=== PATIENT | female | born 1945 | race Caucasian/White ===

== ENCOUNTER 2019-11-18 16:21 | Observation (INO) | payer MEDICARE, MEDICAID, SELFPAY ==
--- NOTE | ~2019-11-18 | XR_ITS ---
EXAMINATION: XR chest 2V 11/18/2019 16:58 INDICATION: Chest pain PROCEDURE: 2 view chest COMPARISON: Comparison to multiple prior studies sequentially, with oldest reviewed study dated 06/04. FINDINGS: The lungs are clear. The cardiomediastinal silhouette is within normal limits. There are no pleural effusions. There is no pneumothorax suspected. IMPRESSION: 1: NO ACUTE CARDIOPULMONARY DISEASE. Reviewed, dictated and finalized at location A.
--- NOTE | 2019-11-18 16:25 | ED.CHESTPAIN ---
HPI - Chest Pain General Chief Complaint: Chest Pain Stated Complaint: CP Time Seen by Provider: 11/18/19 16:22 Source: patient and EMS Mode of arrival: EMS Limitations: no limitations History of Present Illness HPI narrative: A 74 y/o female presents to the ED, via EMS, with c/o nonradiating right sided CP. Pt states that the sharp CP started this morning while she was lying in bed and was a 10/10 in severity when it started. Pt called EMS, an the CP was resolved en route. She denies fever, cough, ABD pain, SOB, and rhinorrhea. EMS gave the patient Aspirin 81mg x3 en route. She denies any injury or fall that could cause the CP. Pt has a PMHx of CT and states that the CP felt similar. MD complaint: chest pain (Right sided) Pertinent past history: prior CT Onset (ago): hour(s) (Today) Timing of current episode: now resolved Onset: during rest Pain location: right chest Pain radiation: none Severity: similar to previous episodes Pain scale (0-10): 10 Quality: sharp Associated symptoms: other (None) Treatment prior to arrival: aspirin Related Data Allergies Allergy/AdvReac Type Severity Reaction Status Date / Time No Known Allergies Allergy Unverified 10/29/18 14:06 Review of Systems Review of Systems: All systems reviewed & are unremarkable except as noted in HPI and below Constitutional: Constitutional: Denies fever(s) ENT: Denies nasal discharge Cardiovascular: Cardiovascular: Reports chest pain (Resolved right sided) Respiratory: Respiratory: Denies cough and Denies dyspnea Gastrointestinal: Gastrointestinal: Denies abdominal pain PMFSH Past Medical History Medical History (Updated 11/18/19 @ 18:18 by Day Tatum MD) Affective disorder Afib Anemia Ankle fracture, left Anxiety Arthritis Bipolar disorder Cataracts, bilateral CHF (congestive heart failure) Chronic back pain COPD (chronic obstructive pulmonary disease) Dementia Depression Diabetes Dysphagia Eczema Fibula fracture Heart attack HTN (hypertension) Hyperlipidemia Mental disorder Pneumonia Post-menopausal Schizophrenia Surgical History Surgical History (Updated 11/18/19 @ 16:30 by Amna Salgado) History of appendectomy History of cataract surgery History of cholecystectomy History of hysterectomy Social History Social History (Updated 11/18/19 @ 16:31 by Amna Salgado) Smoking status: Never smoker Exam Narrative: Exam Narrative: GENERAL: Well-appearing, well-nourished, and in no acute distress. HEAD: Normocephalic, atraumatic EYES: PERRLA and EOMI, conjunctiva clear without discharge THROAT:Mucous membranes moist, Oropharynx normal without erythema, exudate, peritonsillar swelling or fluctuance NECK: Supple, without lymphadenopathy or mass RESPIRATORY: No respiratory distress, Airway patent, Respirations non-labored, Clear to auscultation without rales, rhonchi or wheeze, right chest tenderness HEART: Regular rate and rhythm. No murmur heard. Normal peripheral pulses. ABDOMEN: Soft, nontender, nondistended, normal active bowel sounds. No masses. No rebound or guarding, No organomegaly. bilateral lower extremity edema SKIN: Warm, dry, normal color without rash NEURO: Alert and oriented x3. CN 2-12 grossly intact. No focal deficits. tremors present PSYCH: Normal mood and affect. Course Consultations Consultation #1: Ayla accepts patient to hospitalist service Date: 11/18/19 Time: 18:00 Vital Signs Vital signs: Vital Signs Temperature 98.7 F 11/18/19 16:40 Pulse Rate 84 11/18/19 16:40 Respiratory Rate 16 11/18/19 16:40 Blood Pressure 140/58 L 11/18/19 16:40 Pulse Oximetry 97 11/18/19 16:40 Temperature 98.7 F 11/18/19 16:40 Pulse Rate 84 11/18/19 16:40 Respiratory Rate 16 11/18/19 16:40 Blood Pressure 140/58 L 11/18/19 16:40 Pulse Oximetry 97 11/18/19 16:40 MDM - Chest Pain Lab Data Attestation: I reviewed the patient's lab results. Result diagrams: 11/18/19
[2019-11-18 16:40] VITALS: BP 140/58; PULSE 84; RESP 16; TEMP 37.1; O2SAT 97
--- NOTE | 2019-11-18 16:40 | ECG_ITS ---
Measurements Intervals [place] Rate: 93 P: [place]: 0 QRS: -49 QRSD: 160 T: 113 QT: 415 QTc: 517 Interpretive Statements ATRIAL FIBRILLATION VENTRICULAR PREMATURE COMPLEX LEFT AXIS DEVIATION LEFT BUNDLE BRANCH BLOCK ABNORMAL ECG Electronically Signed On 11-19-2019 7:52:40 CDT by Tristen Lynch D.O.
[2019-11-18 17:31] LABS: Basophils Percent Auto 0.7 % (0.2-1.2); Eosinophils Absolute Auto 0.2 K/mm3 (0-0.3); Eosinophils Percent Auto 3.5 % (0-4.4); Hematocrit 30.8 % (37.0-47.0); Immature Granulocyte Absolute 0.04 K/mm3 (0.00-0.031); Immature Granulocyte Percent A 0.7 % (0-0.5); Lymphocytes Absolute Auto 0.66 K/mm3 (0.9-3.2); Mean Corpuscular HGB Conc 32.5 g/dl (32-36); Mean Corpuscular Hemoglobin 29.9 pg (26-34); Mean Corpuscular Volume 92.2 fl (80-100); Mean Platelet Volume 10.7 fl (7.4-10.4); Monocytes Absolute Auto 0.5 K/mm3 (0.1-0.6); Monocytes Percent Auto 9.7 % (2.6-8.5); Neutrophils Percent Auto 73.4 % (45.5-73.1); Platelet Count Result 194 k/mm3 (150-375); Red Blood Count 3.34 M/mm3 (4.2-5.4); Red Cell Distribution Width 13.2 % (11.5-14.5); White Blood Count 5.5 K/mm3 (4.5-10.0)
[2019-11-18 17:39] LABS: Blood Urea Nitrogen 44 mg/dL (7-17); Carbon Dioxide 27 mmol/L (22-30); Chloride 99 mmol/L (98-107); Estimated Glomerular Filt Rate 29; Glucose 109 mg/dL (65-105); Potassium 4.3 mmol/L (3.4-5.0); Sodium 137 mmol/L (137-145)
[2019-11-18 17:41] LABS: Partial Thromboplastin Time 36.5 SECONDS (22.3-36.8)
[2019-11-18 17:50] LABS: Troponin I < 0.012 ng/mL (0.000-0.034)
[2019-11-18 20:00] VITALS: PULSE 86
--- NOTE | 2019-11-18 20:00 | ADMGEN ---
This patient, Jennifer Castrejon, was admitted to IMU Room 201-01. Patient/family oriented to hospital policies and general routines including ID bracelet, bed and alarms, visiting hours, pain management, procedures, bathroom and other care routines, personal items, smoking policy, room service/diet, and visiting hours. Valuables list has been completed. Information on how to activate the Rapid Response Team has been discussed. Patient/Family are encouraged to report perceived risks to care and to ask questions if they do not understand what they are told or what they should do.
[2019-11-18 20:05] VITALS: BP 151/66; PULSE 86; RESP 18; TEMP 36.2; O2SAT 97; BMI 28.5
[2019-11-18 21:06] LABS: Troponin I < 0.012 ng/mL (0.000-0.034)
[2019-11-18 22:00] VITALS: PULSE 61
[2019-11-18 23:19] VITALS: BP 129/68; PULSE 64; RESP 16; TEMP 36.3; O2SAT 95
--- NOTE | 2019-11-18 23:53 | PM.IMHP ---
H&P: HPI History of Present Illness Chief complaint: CHEST PAIN Narrative: This is a 74 year old demented female with known history of atrial fibrillation, chronic anemia, COPD, HTN, CAD+ and several other comorbidities who presented to the hospital with a complaint of nonradiating right sided chest pain. The patient apparently has had intermittent chest pain for about 1 week duration. She woke up this morning with right sided chest pain. The patient denied any associated symptoms of shortness of breath, palpitations, diaphoresis, nausea, vomiting, or dizziness. She denies any other symptoms such as fever, cough, abdominal pain, dysuria, hematuria, diarrhea or rectal bleeding. She states she has had a previous heart attack but denies having any stents. She doesn't know if she has ever had a cardiac cath in the past. Her chest pain resolved earlier today with nitro. The patient was evaluated in the ER today and admitted for chest pain rule out. On my encounter with her tonight she denies any chest pain. She has no other complaints at this time. Review of Systems Review of Systems: All systems reviewed & are unremarkable except as noted in HPI and below PMFSH Past Medical History Medical History Affective disorder Afib Anemia Ankle fracture, left Anxiety Arthritis Bipolar disorder Cataracts, bilateral CHF (congestive heart failure) Chronic back pain COPD (chronic obstructive pulmonary disease) Dementia Depression Diabetes Dysphagia Eczema Fibula fracture Heart attack HTN (hypertension) Hyperlipidemia Mental disorder Pneumonia Post-menopausal Schizophrenia Surgical History Surgical History History of appendectomy History of cataract surgery History of cholecystectomy History of hysterectomy Social History Social History Smoking status: Never smoker Substance use type: does not use Spiritual care concerns: No Agree to blood products: Yes Comments Family medical history is unknown. Meds Home Medications and Allergies Home Medications Medication Instructions Recorded Confirmed Type acetaminophen 325 mg PO Q4H PRN 11/18/19 11/18/19 History albuterol sulfate 1.25 mg INHALATION Q4H PRN 11/18/19 11/18/19 History alum-mag hydroxide-simeth 30 ml PO BID PRN 11/18/19 11/18/19 History [Jess-Lanta] aspirin 81 mg PO DAILY 11/18/19 11/18/19 History calcium carbonate-vitamin D3 1 tablet PO BID 11/18/19 11/18/19 History carvedilol [Coreg] 25 mg PO BID 11/18/19 11/18/19 History cyanocobalamin (vitamin B-12) 1,000 mcg IM MONTHLY 11/18/19 11/18/19 History diphenhydramine HCl [Benadryl] 25 mg PO Q8H PRN 11/18/19 11/18/19 History donepezil 10 mg PO HS 11/18/19 11/18/19 History duloxetine 60 mg PO DAILY 11/18/19 11/18/19 History fluticasone propionate [Allergy 2 spray INTRANASAL DAILY 11/18/19 11/18/19 History Relief (fluticasone)] furosemide 20 mg PO DAILY 11/18/19 11/18/19 History isosorbide mononitrate 30 mg PO DAILY 11/18/19 11/18/19 History losartan 50 mg PO DAILY 11/18/19 11/18/19 History magnesium hydroxide [Milk of 30 ml PO HS PRN 11/18/19 11/18/19 History Magnesia] metformin 500 mg PO BID 11/18/19 11/18/19 History polyethylene glycol 3350 [Miralax] 17 g PO DAILY PRN 11/18/19 11/18/19 History polysaccharide iron complex 150 mg PO BID 11/18/19 11/18/19 History [Poly-Iron] quetiapine [Seroquel] 50 mg PO TID 11/18/19 11/18/19 History quetiapine [Seroquel] 100 mg PO HS 11/18/19 11/18/19 History simvastatin 40 mg PO HS 11/18/19 11/18/19 History spironolactone 12.5 mg PO DAILY 11/18/19 11/18/19 History Allergies Allergy/AdvReac Type Severity Reaction Status Date / Time No Known Allergies Allergy Unverified 10/29/18 14:06 Vital Signs Vital Signs - 24 hr 11/18/19 16:40 11/18/19 20:00 11/18/19 20:05 Temperature 37.1 C 36.2 C L
[2019-11-19] VITALS (10 sets, daily range): BP systolic 100–144; BP diastolic 45–70; PULSE 53–76; RESP 16–18; TEMP 36.1–36.3; O2SAT 93–99
[2019-11-19 00:01] LABS: Troponin I < 0.012 ng/mL (0.000-0.034)
[2019-11-19] MEDS: DONEPEZIL HCL 10 MG TABLET PO (01:11)
[2019-11-19] MEDS: QUEtiapine FUMARATE 100 MG TABLET PO (01:11)
[2019-11-19] MEDS: SIMVASTATIN 20 MG TABLET 40 MG PO (01:11)
[2019-11-19] MEDS: carvediloL 25 MG TABLET PO ×2 (01:12→09:23)
[2019-11-19] MEDS: SODIUM CHLORIDE 0.9% IV 1,000 ML 75 ML IV CONT (01:16)
[2019-11-19 05:15] LABS: Blood Urea Nitrogen 43 mg/dL (7-17); Calcium 9.5 mg/dL (8.4-10.2); Carbon Dioxide 27 mmol/L (22-30); Chloride 103 mmol/L (98-107); Estimated CRCL calculation 27 ml/min; Estimated Glomerular Filt Rate 32; Glucose 104 mg/dL (65-105); Potassium 3.8 mmol/L (3.4-5.0); Sodium 136 mmol/L (137-145)
--- NOTE | 2019-11-19 08:41 | PM.IMPN ---
Progress Note: A&P Assessment and Plan (1) Chest pain: Qualifiers: Chest pain type: unspecified Qualified Code(s): R07.9 - Chest pain, unspecified Code(s): R07.9 - Chest pain, unspecified Status: Acute Assessment and Plan: Serial troponin levels all negative. Cardiology consulted and appreciate input. EKG with left bundle branch block. Telemetry reviewed on 11/19/2019 with atrial fibrillation. Possible discharge today pending cardiology recommendations. (2) HTN (hypertension): Qualifiers: Hypertension type: unspecified Qualified Code(s): I10 - Essential (primary) hypertension Code(s): I10 - Essential (primary) hypertension Status: Chronic Assessment and Plan: Blood pressure reviewed on 11/19/2019 with some variation but acceptable. Will continue to monitor on Coreg and Imdur. (3) Afib: Qualifiers: Atrial fibrillation type: unspecified Qualified Code(s): I48.91 - Unspecified atrial fibrillation Code(s): I48.91 - Unspecified atrial fibrillation Status: Chronic Assessment and Plan: Previously on Pradaxa but stopped in November 2018 due to falls and blood in stool. Will continue ASA. Continue Coreg. Telemetry reviewed on 11/19/2019 with heart rate controlled. (4) Anemia: Qualifiers: Anemia type: unspecified type Qualified Code(s): D64.9 - Anemia, unspecified Code(s): D64.9 - Anemia, unspecified Status: Chronic Assessment and Plan: Known chronic issue. Hemoglobin stable at baseline at 10.00 on admission. No sign of bleeding. (5) Diabetes: Qualifiers: Diabetes mellitus type: type 2 Diabetes mellitus intermediate school teacher insulin use: without intermediate school teacher use Diabetes mellitus complication status: without complication Qualified Code(s): E11.9 - Type 2 diabetes mellitus without complications Code(s): E11.9 - Type 2 diabetes mellitus without complications Status: Chronic Assessment and Plan: Glucose reviewed on 11/19/2019 and stable. Home metformin on hold. Sliding scale insulin available as needed. (6) CHF (congestive heart failure): Qualifiers: Heart failure type: unspecified Heart failure chronicity: chronic Qualified Code(s): I50.9 - Heart failure, unspecified Code(s): I50.9 - Heart failure, unspecified Status: Chronic Assessment and Plan: No sign of exacerbation. Remains on Coreg. Home furosemide, losartan and spironolactone were held on admission. Will wait to resume until seen by Cardiology. (7) COPD (chronic obstructive pulmonary disease): Qualifiers: COPD type: unspecified COPD Qualified Code(s): J44.9 - Chronic obstructive pulmonary disease, unspecified Code(s): J44.9 - Chronic obstructive pulmonary disease, unspecified Status: Chronic Assessment and Plan: No exacerbation. Patient is on room air. Albuterol nebulizer as needed. (8) Hyperlipidemia: Qualifiers: Hyperlipidemia type: unspecified Qualified Code(s): E78.5 - Hyperlipidemia, unspecified Code(s): E78.5 - Hyperlipidemia, unspecified Status: Chronic Assessment and Plan: Continue simvastatin. (9) Dementia: Qualifiers: Dementia type: unspecified type Dementia behavioral disturbance: without behavioral disturbance Qualified Code(s): F03.90 - Unspecified dementia without behavioral disturbance Code(s): F03.90 - Unspecified dementia without behavioral disturbance Status: Chronic Assessment and Plan: Patient appears to be stable at baseline. Continue donepezil. (10) Schizophrenia: Qualifiers: Schizophrenia type: unspecified Qualified Code(s): F20.9 - Schizophrenia, unspecified Code(s): F20.9 - Schizophrenia, unspecified Status: Chronic Assessment and Plan: Mood stable. Continue seroquel. (11) Bipolar disorder: Qualifiers:
--- NOTE | 2019-11-19 08:55 | WPDCN ---
Assessment and Plan Assessment and plan (1) Chest pain: Qualifiers: Chest pain type: unspecified Qualified Code(s): R07.9 - Chest pain, unspecified Code(s): R07.9 - Chest pain, unspecified Status: Acute Assessment and Plan: Atypical chest pain, no associated symptoms, negative troponins. Doing well since she has been admitted. I suspect noncardiac. reasonable discharge to [facility] with p.r.n. Tylenol and p.r.n. TNG. (2) Cardiomyopathy: Code(s): I42.9 - Cardiomyopathy, unspecified Status: Acute Assessment and Plan: Cardiomyopathy, EF 20-25%, on the appropriate medications (3) CHF (congestive heart failure): Qualifiers: Heart failure type: unspecified Heart failure chronicity: chronic Qualified Code(s): I50.9 - Heart failure, unspecified Code(s): I50.9 - Heart failure, unspecified Status: Chronic Assessment and Plan: History of CHF, been doing well with no CHF admissions for over 1 year. Euvolemic. (4) HTN (hypertension): Qualifiers: Hypertension type: unspecified Qualified Code(s): I10 - Essential (primary) hypertension Code(s): I10 - Essential (primary) hypertension Status: Chronic Assessment and Plan: Up and down, generally a little on the high side but reasonable (5) Afib: Qualifiers: Atrial fibrillation type: unspecified Qualified Code(s): I48.91 - Unspecified atrial fibrillation Code(s): I48.91 - Unspecified atrial fibrillation Status: Chronic Assessment and Plan: Persistent atrial fibrillation, rate controlled, not on anticoagulation because of GI bleed and anemia (6) Anemia: Qualifiers: Anemia type: unspecified type Qualified Code(s): D64.9 - Anemia, unspecified Code(s): D64.9 - Anemia, unspecified Status: Chronic Assessment and Plan: Anemia persists with no overt bleeding (7) CKD (chronic kidney disease): Code(s): N18.9 - Chronic kidney disease, unspecified Status: Acute Assessment and Plan: 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 Taking an ARB. Tolerating spironolactone with no hyperkalemia. (8) Schizophrenia: Qualifiers: Schizophrenia type: unspecified Qualified Code(s): F20.9 - Schizophrenia, unspecified Code(s): F20.9 - Schizophrenia, unspecified Status: Chronic Assessment and Plan: Cognitive impairment and history of schizophrenia HPI Data of Consult Date/Time: 11/19/19 08:55 Requesting Physician: Jesusita Gonzalez MD Primary Care Provider: Yessica Santiago MD Consult Narrative Narrative: Date of service: 11/19/2019 Jennifer Castrejon is a 74 year old female whom I was asked to see by Dr. Gonzalez and Dr. Teresa advice and opinion regarding her chest pain in consultation. Apparently the patient was having chest discomfort yesterday and was brought to the ER by ambulance and admitted. The chest discomfort had resolved in the ambulance. She reports that she has been having chest pain intermittently but can't tell me how long that has been occurring. Is a sharp right-sided discomfort which can last for few hours with no associated nausea vomiting shortness of breath or diaphoresis. She does have occasional soreness to her chest pain is nonpleuritic and does not seem to be positional. Not related to meals. ?Comes and stays.? She has not had any further discomfort this morning. Ms. Castrejon has a history of CHF and cardiomyopathy which is presumed ischemic. First hospitalization for CHF was in April 2018 when her EF was found to be 20-25%. Cardiac catheterization was recommended but she declined. She also has history of atrial fibrillation. Anticoagulation was discontinued November 2018 because of GI bleeding. She has hypertension, hyperlipidemia and diabetes. 04/2018 echo: EF 20-25%, multiple wall motion abnormalities involving
[2019-11-19] MEDS: ASPIRIN 81 MG CHEWABLE TABLET PO (09:22)
[2019-11-19] MEDS: DULOXETINE 60 MG CAPSULE.DR PO (09:23)
[2019-11-19] MEDS: FLUTICASONE PROPIONATE 0.05% NA SPR 16 GM BTL (*BKC) 2 SPRAY NASAL (09:23)
[2019-11-19] MEDS: QUEtiapine FUMARATE 25 MG TABLET 50 MG PO ×2 (09:24→12:17)
[2019-11-19] MEDS: ISOSORBIDE MONONITRATE 30 MG TAB.ER.24H PO (09:24)
[2019-11-19] MEDS: POLYSACCHARIDE IRON COMPLEX 150 MG CAPSULE PO (09:24)
[2019-11-19 10:21] LABS: Glucose Point of Care 101 (65-105)
[2019-11-19] MEDS: CYANOCOBALAMIN INJ 1,000 MCG/ML VIAL 1000 MCG IM (11:00)
[2019-11-19] MEDS: INSULIN ASPART (*BKC) 100 UNITS/ML SUB-Q (12:17)
[2019-11-19 13:51] LABS: Glucose Point of Care 201 (65-105)
--- NOTE | 2019-11-19 16:40 | PM.DS ---
DS: Diagnosis Admitting Diagnosis Admitting Diagnosis: Chest pain, unspecified Discharge Diagnosis (1) Chest pain: Qualifiers: Chest pain type: unspecified Qualified Code(s): R07.9 - Chest pain, unspecified Code(s): R07.9 - Chest pain, unspecified Status: Acute (2) HTN (hypertension): Qualifiers: Hypertension type: unspecified Qualified Code(s): I10 - Essential (primary) hypertension Code(s): I10 - Essential (primary) hypertension Status: Chronic (3) Afib: Qualifiers: Atrial fibrillation type: unspecified Qualified Code(s): I48.91 - Unspecified atrial fibrillation Code(s): I48.91 - Unspecified atrial fibrillation Status: Chronic (4) Anemia: Qualifiers: Anemia type: unspecified type Qualified Code(s): D64.9 - Anemia, unspecified Code(s): D64.9 - Anemia, unspecified Status: Chronic (5) Diabetes: Qualifiers: Diabetes mellitus complication status: without complication Diabetes mellitus extermination supervisor insulin use: without extermination supervisor use Diabetes mellitus type: type 2 Qualified Code(s): E11.9 - Type 2 diabetes mellitus without complications Code(s): E11.9 - Type 2 diabetes mellitus without complications Status: Chronic (6) CHF (congestive heart failure): Qualifiers: Heart failure chronicity: chronic Heart failure type: unspecified Qualified Code(s): I50.9 - Heart failure, unspecified Code(s): I50.9 - Heart failure, unspecified Status: Chronic (7) COPD (chronic obstructive pulmonary disease): Qualifiers: COPD type: unspecified COPD Qualified Code(s): J44.9 - Chronic obstructive pulmonary disease, unspecified Code(s): J44.9 - Chronic obstructive pulmonary disease, unspecified Status: Chronic (8) Hyperlipidemia: Qualifiers: Hyperlipidemia type: unspecified Qualified Code(s): E78.5 - Hyperlipidemia, unspecified Code(s): E78.5 - Hyperlipidemia, unspecified Status: Chronic (9) Dementia: Qualifiers: Dementia behavioral disturbance: without behavioral disturbance Dementia type: unspecified type Qualified Code(s): F03.90 - Unspecified dementia without behavioral disturbance Code(s): F03.90 - Unspecified dementia without behavioral disturbance Status: Chronic (10) Schizophrenia: Qualifiers: Schizophrenia type: unspecified Qualified Code(s): F20.9 - Schizophrenia, unspecified Code(s): F20.9 - Schizophrenia, unspecified Status: Chronic (11) Bipolar disorder: Qualifiers: Active/Remission status: in remission of unspecified degree Qualified Code(s): F31.70 - Bipolar disorder, currently in remission, most recent episode unspecified Code(s): F31.9 - Bipolar disorder, unspecified Status: Chronic DS: Summary Hospital Course Reason for hospitalization: Chest pain. Hospital Course: Date of Service of Discharge: November 19, 2019. History of Present Illness: Patient is a 74-year-old female with dementia, atrial fibrillation, chronic anemia, COPD, hypertension, coronary artery disease and several other comorbidities who presented to the hospital from nursing facility with nonradiating right-sided chest pain. Patient has had intermittent pain for approximately 1 week. On the morning of presentation, she woke up with right-sided chest pain. No associated shortness of breath, palpitations, diaphoresis, nausea, vomiting or dizziness. Recent fever, cough, nausea or vomiting. In the emergency room, no acute changes were found but patient was placed in observation for further evaluation and treatment. Course in Hospital: Patient was placed in observation in the IMU where she remained for the duration of her stay. Serial troponin levels were drawn and completely negative. EKG with left bundle branch block but no acute changes. Patient had no further chest pain whil
== END 2019-11-19 13:47 ==
LOC: ANHED 18:18 → ANHIMU 22:56
PROVIDERS: Family Medicine; Admitting Provider Family Medicine; Emergency Provider General Practice; PCP Family Medicine; Visit Provider Hospitalist
DX: R07.89 Other chest pain (principal); I13.0 Hypertensive heart and chronic kidney disease with heart failure and stage 1 through stage 4 chronic kidney disease, or unspecified chronic kidney disease; E11.22 Type 2 diabetes mellitus with diabetic chronic kidney disease; N18.9 Chronic kidney disease, unspecified; I50.9 Heart failure, unspecified; I48.19 Other persistent atrial fibrillation; J44.9 Chronic obstructive pulmonary disease, unspecified; E78.5 Hyperlipidemia, unspecified; F03.90 Unspecified dementia, unspecified severity, without behavioral disturbance, psychotic disturbance, mood disturbance, and anxiety; F20.9 Schizophrenia, unspecified; F31.70 Bipolar disorder, currently in remission, most recent episode unspecified; I25.10 Atherosclerotic heart disease of native coronary artery without angina pectoris; I42.9 Cardiomyopathy, unspecified; I44.7 Left bundle-branch block, unspecified; D64.9 Anemia, unspecified; Z79.82 Long term (current) use of aspirin; Z79.84 Long term (current) use of oral hypoglycemic drugs; Z79.899 Other long term (current) drug therapy; Z87.19 Personal history of other diseases of the digestive system; Z91.81 History of falling; Z99.3 Dependence on wheelchair
CPT/HCPCS: 36415; 71046; 80048; 84484; 85025; 85610; 85730; 87081; 93005; 96360; 96361; 96372; 99285; A9270; G0378; J1815; J3420; J7030